=== PATIENT | male | born 1980 | race Caucasian/White ===

== ENCOUNTER 2017-05-23 13:10 | Emergency (ER) | payer SELFPAY ==
[~2017-05-23] VITALS: Ht 182.9 cm; Wt 99.8 kg
--- NOTE | 2017-05-23 14:05 | ED Abdominal Pain ---
General Chief Complaint: Abdominal/GI Problems Stated Complaint: ABD PAIN V/D Nursing Triage Note: C/O DIFFUSE ABDOMEN PAIN WITH DIARRHEA SINCE 0400 ON 05/22 Sepsis Screen: No Definite Risk Source of Information: Patient Exam Limitations: No Limitations History of Present Illness Time Seen By Provider: 14:04 Initial Comments To ER with abdominal pain, nausea vomiting and diarrhea. This began yesterday evening. He believed it may have been secondary to [employer] fast food that he got in [place] night before. However, today, the vomiting has improved but the diarrhea persists and is watery and without marco blood or mucus. Has no history of this. He does have some left-sided abdominal discomfort. Timing/Duration: 1-2 Days Severity/Quality: Cramping Location: LLQ Radiation: No Radiation Activities at Onset: None Allergies and Home Medications Allergies Coded Allergies: Penicillins (Verified Allergy, Unknown, 05/23/17) Home Medications No Active Prescriptions or Reported Meds Review of Systems Constitutional: see HPI, No chills EENTM: No Symptoms Reported Respiratory: No Symptoms Reported Cardiovascular: No Symptoms Reported Gastrointestinal: See HPI, Abdominal Pain, Diarrhea, Nausea Genitourinary: No Symptoms Reported Musculoskeletal: no symptoms reported Skin: no symptoms reported Psychiatric/Neurological: No Symptoms Reported Endocrine: No Symptoms Reported Past Rxrgtgh-Fyyfjp-Gxutby Hx Patient Social History Alcohol Use: Occasionally Uses Recreational Drug Use: No Smoking Status: Former Smoker Recent Foreign Travel: No Contact w/Someone Who Travel: No Recent Infectious Disease Expo: No Physical Exam Vital Signs VS - Last 72 Hours, by Label 05/23/17 13:54 Temp 98.4 Pulse 64 Resp 18 B/P (MAP) 115/80 Pulse Ox 98 Capillary Refill : Less Than 3 Seconds General Appearance: WD/WN, no apparent distress HEENT: PERRL/EOMI, normal ENT inspection Neck: non-tender, full range of motion Respiratory: normal breath sounds, no respiratory distress, no accessory muscle use Cardiovascular: regular rate, rhythm, no murmur Gastrointestinal: normal bowel sounds, non tender, soft, No tenderness Extremities: normal range of motion, non-tender Neurologic/Psychiatric: alert, normal mood/affect, oriented x 3 Skin: normal color, warm/dry Progress/Results/Core Measures Results/Orders Lab Results Laboratory Tests Test 05/23/17 14:05 Range/Units White Blood Count 6.9 4.3-11.0 10^3/uL Red Blood Count 5.21 4.35-5.85 10^6/uL Hemoglobin 15.8 13.3-17.7 G/DL Hematocrit 47 40-54 % Mean Corpuscular Volume 90 80-99 FL Mean Corpuscular Hemoglobin 30 25-34 PG Mean Corpuscular Hemoglobin Concent 34 32-36 G/DL Red Cell Distribution Width 12.8 10.0-14.5 % Platelet Count 247 130-400 10^3/uL Mean Platelet Volume 10.3 7.4-10.4 FL Neutrophils (%) (Auto) 59 42-75 % Lymphocytes (%) (Auto) 27 12-44 % Monocytes (%) (Auto) 11 0-12 % Eosinophils (%) (Auto) 3 0-10 % Basophils (%) (Auto) 1 0-10 % Neutrophils # (Auto) 4.1 1.8-7.8 X 10^3 Lymphocytes # (Auto) 1.9 1.0-4.0 X 10^3 Monocytes # (Auto) 0.7 0.0-1.0 X 10^3 Eosinophils # (Auto) 0.2 0.0-0.3 10^3/uL Basophils # (Auto) 0.1 0.0-0.1 10^3/uL My Orders Orders - MARQUES JONES APRN Cbc With Automated Diff (05/23/17 14:01) Comprehensive Metabolic Panel (05/23/17 14:01) Lipase (05/23/17 14:01) Ua Culture If Indicated (05/23/17 14:01) Ct Abdomen/Pelvis W (05/23/17 14:01) Ns Iv 1000 Ml (Sodium Chloride 0.9%) (05/23/17 14:15) Ketorolac Injection (Toradol Injection) (05/23/17 14:15) Ondansetron Injection (Zofran Injectio (05/23/17 14:15) Iohexol Injection (Omnipaque 350 Mg/Ml 1 (05/23/17 14:15) Sodium Chloride Flush (Catheter Flush Sy (05/23/17 14:15) Ns (Ivpb) (Sodium Chloride 0.9% Ivpb Bag (05/23/17 14:15) Loperamide Capsule (Imodium Capsule) (05/23/17 14:45) Medications Given in ED Current Medications Medications Dose Ordered Sig/Arnol Route Start Time Stop Time Status Last Admin Dose Admin Iohexol 100 ml ONCE ONCE IV 05/23/17 14:15 05/23/17 14:16 DC 05/23/17 14:20 100 ML Ketorolac Tromethamine 30 mg ONCE ONCE IVP 05/23/17 14:15 05/23/17 14:16 DC 05/23/17 14:09 30 MG Ondansetron HCl 4 mg ONCE ONCE IVP 05/23/17 14:15 05/23/17 14:16 DC 05/23/17 14:09 4 MG Sodium Chloride 100 ml ONCE ONCE IV 05/23/17 14:15 05/23/17 14:16 DC 05/23/17 14:20 80 ML Vital Signs/I&O Vital Sign - Last 12Hours 05/23/17 13:54 Temp 98.4 Pulse 64 Resp 18 B/P (MAP) 115/80 Pulse Ox 98 Blood Pressure Mean: 92 Diagnostic Imaging Diagonstic Imaging: CT Comments NAME: TAYLER EDG[facility] REC#: [id number] PT STATUS: REG ER : 1980 PHYSICIAN: MARQUES JONES EQUIPMENT SCHEDULER ADMIT DATE: 05/23/17/ER Draft Date of Exam:05/23/17 CT ABDOMEN/PELVIS W PROCEDURE: CT abdomen and pelvis with contrast. TECHNIQUE: Multiple contiguous axial images were obtained through the abdomen and pelvis after administration of intravenous contrast. INDICATION: Abdominal pain, nausea, vomiting, and diarrhea. FINDINGS: The appendix is visualized and normal. There is no diverticulitis. There is no ascites, abscess, hematoma, or other fluid collection. The liver, bile ducts, gallbladder, spleen, adrenals, and pancreas are unremarkable. The unobstructed kidneys appear normal. There is no focal inflammatory process. No pneumatosis or free air. No aneurysm, adenopathy, or mass. The lung bases and the osseous structures are nonacute. IMPRESSION: No acute appearing abnormality. Dictated on workstation # [id number] Dict: 05/23/17 1430 Trans: 05/23/17 1436 [id number] Interpreted by: CARMELO ROSEN Electronically signed by: Departure Impression Impression: Primary Impression: Nausea, vomiting, and diarrhea Disposition: 01 HOME, SELF-CARE Condition: Stable Departure-Patient Inst. Decision time for Depature: 14:39 Referrals: NO,LOCAL PHYSICIAN (PCP/Family) Primary Care Physician Patient Instructions: Diarrhea in Adolescents and Adults Add. Discharge Instructions: 1. Use [id number]-cmryllz Imodium which can be purchased at [employer] or [employer] for diarrhea 2. Stay hydrated by drinking plenty of fluids. Pedialyte is a great choice, Gatorade or water would also be okay. 3. Follow-up with one of the physicians listed. If your symptoms persist beyond the end of this week would be time to obtain stool cultures to determine if there are any unusual bacteria causing your symptoms All discharge instructions reviewed with patient and/or family. Voiced understanding. Scripts No Active Prescriptions or Reported Meds Work/School Note: Work Release Form Date Seen in the Emergency Department: May 23, 2017 Return to Work: May 24, 2017 MARQUES JONES APRN May 23, 2017 14:05
[2017-05-23] MEDS ORDERED: KETOROLAC 30 MG/ML VIAL IVP ONE (14:15)
[2017-05-23] MEDS ORDERED: IOHEXOL 350 MG/ML 100 ML (OMNIPAQUE 350) VIAL IV ONE (14:15)
[2017-05-23] MEDS ORDERED: NS 100 ML (IVPB) BAG IV ONE (14:15)
[2017-05-23] MEDS ORDERED: NS IV 1000 ML 1,000 ML IV SCH (14:15)
[2017-05-23] MEDS ORDERED: ONDANSETRON 4 MG/2 ML (SDV) Z0FRAN IVP ONE (14:15)
[2017-05-23] MEDS ORDERED: CATHETER FLUSH 10 ML SYR IV PRN (14:15)
[2017-05-23 14:17] LABS: BASOPHILS # (AUTO) 0.1 10^3/uL (0.0-0.1); BASOPHILS % (AUTO) 1 % (0-10); EOSINOPHILS # (AUTO) 0.2 10^3/uL (0.0-0.3); EOSINOPHILS % (AUTO) 3 % (0-10); LYMPHOCYTES # (AUTO) 1.9 X 10^3 (1.0-4.0); LYMPHOCYTES % (AUTO) 27 % (12-44); MEAN CORPUSCULAR HEMOGLOBIN 30 PG (25-34); MEAN CORPUSCULAR HGB CONC 34 G/DL (32-36); MEAN CORPUSCULAR VOLUME 90 FL (80-99); MEAN PLATELET VOLUME 10.3 FL (7.4-10.4); MONOCYTES # (AUTO) 0.7 X 10^3 (0.0-1.0); MONOCYTES % (AUTO) 11 % (0-12); NEUTROPHILS # (AUTO) 4.1 X 10^3 (1.8-7.8); NEUTROPHILS % (AUTO) 59 % (42-75); PLATELET COUNT 247 10^3/uL (130-400); RED BLOOD COUNT 5.21 10^6/uL (4.35-5.85); RED CELL DISTRIBUTION WIDTH 12.8 % (10.0-14.5); WHITE BLOOD COUNT 6.9 10^3/uL (4.3-11.0)
--- NOTE | 2017-05-23 14:36 | Diagnostic Imaging Report ---
PROCEDURE: CT abdomen and pelvis with contrast. TECHNIQUE: Multiple contiguous axial images were obtained through the abdomen and pelvis after administration of intravenous contrast. INDICATION: Abdominal pain, nausea, vomiting, and diarrhea. FINDINGS: The appendix is visualized and normal. There is no diverticulitis. There is no ascites, abscess, hematoma, or other fluid collection. The liver, bile ducts, gallbladder, spleen, adrenals, and pancreas are unremarkable. The unobstructed kidneys appear normal. There is no focal inflammatory process. No pneumatosis or free air. No aneurysm, adenopathy, or mass. The lung bases and the osseous structures are nonacute. IMPRESSION: No acute appearing abnormality. Dictated by: Dictated on workstation # [id number]
[2017-05-23 14:41] LABS: ALANINE AMINOTRANSFERASE 24 U/L (0-55); ANION GAP 7 MMOL/L (5-14); ASPARTATE AMINO TRANSFERASE 16 U/L (5-34); BILIRUBIN,TOTAL 0.8 MG/DL (0.1-1.0); BLOOD UREA NITROGEN 11 MG/DL (7-18); BUN/CREATININE RATIO 12; CALCIUM 9.2 MG/DL (8.5-10.1); CARBON DIOXIDE 28 MMOL/L (21-32); CHLORIDE 106 MMOL/L (98-107); CREATININE SERUM 0.94 MG/DL (0.60-1.30); GFR ESTIMATED > 60; GLUCOSE 87 MG/DL (70-105); LIPASE 29 U/L (8-78); POTASSIUM 3.9 MMOL/L (3.6-5.0); SODIUM 141 MMOL/L (135-145); TOTAL PROTEIN 6.9 GM/DL (6.4-8.2)
[2017-05-23] MEDS ORDERED: LOPERAMIDE 2 MG (IMODIUM) CAP PO ONE (14:45)
[2017-05-23 14:57] VITALS: BP 115/80
== END 2017-05-23 14:57 | disposition home or self-care (01) ==
LOC: ER 13:13
DX: R11.2 Nausea with vomiting, unspecified (principal); R19.7 Diarrhea, unspecified; Z87.891 Personal history of nicotine dependence
CPT/HCPCS: 36415; 74177; 80053; 83690; 85025; 96361; 96374; 96375

== ENCOUNTER 2017-05-29 10:48 | Emergency (ER) | payer SELFPAY ==
[~2017-05-29] VITALS: Ht 182.9 cm; Wt 104.3 kg
[2017-05-29] MEDS ORDERED: NS IV 1000 ML 1,000 ML IV ONE ×2 (11:45→13:26)
--- NOTE | 2017-05-29 11:46 | ED Neurological Problem ---
General Chief Complaint: Dizziness/Syncope Stated Complaint: SOB,DIZZINESS,SWEATING Nursing Triage Note: pt reports dizziness and soa starting this am. pt reports soa is intermittent. pt also reports l ear "fullness". pt denies any current pain at this time. Nursing Sepsis Screen: No Definite Risk Source: patient, spouse Exam Limitations: no limitations History of Present Illness Time seen by provider: 11:20 Initial Comments 37 yo male patient presents to the ED with c/o intermittent dizziness beginning this AM while at work. Reports dizziness is worse with standing. Does complain of mild nausea. Patient states after symptoms began he did start to feel a little short of breath followed by his hands feeling tingly. Does report left ear fullness. States he was outside quite a bit this weekend. Does drink a lot of water. Timing/Duration: 1-3 hours, waxing and waning Severity: moderate Allergies and Home Medications Allergies Coded Allergies: Penicillins (Verified Allergy, Unknown, 05/23/17) Home Medications Ciprofloxacin HCl 500 Mg Tablet, 500 MG PO BID, #20 Ref 0 Prescribed by: VISHAL BLUE on 05/29/17 1357 Meclizine HCl 25 Mg Tablet, 25 MG PO Q6H PRN for DIZZINESS, #20 Ref 0 Prescribed by: VISHAL BLUE on 05/29/17 1357 Constitutional: No chills, No diaphoresis, dizziness, No fever, No malaise Eyes: Denies Blurred Vision, Denies Decreased Acuity, Denies Vision Changes Ears, Nose, Mouth, Throat: see HPI, denies ear pain, denies ear discharge, denies nose pain, denies nose discharge, denies mouth pain, denies loose teeth, denies throat pain Respiratory: see HPI, No cough, No dyspnea on exertion, No orthopnea, No phlegm , No short of breath (did have 1 episode of SOA, but resolved.), No wheezing Cardiovascular: No chest pain, No edema, No palpitations, No syncope Gastrointestinal: No abdominal pain, No constipation, No diarrhea, nausea, No vomiting Genitourinary: no symptoms reported Musculoskeletal: no symptoms reported Skin: no symptoms reported Psychiatric/Neurological: Denies Cognitive Dysfunction, Denies Headache, Denies Numbness, Tingling ((resolved)), Denies Unable to Move Lower Ext, Denies Unable to Move Upper Ext All Other Systems Reviewed Negative Unless Noted: Yes (Negative excepted noted.) Past Ezjtvdr-Ujhngc-Pjxtpu Hx Patient Social History Alcohol Use: Occasionally Uses Recreational Drug Use: No Smoking Status: Former Smoker Recent Foreign Travel: No Contact w/Someone Who Travel: No Recent Infectious Disease Expo: No Surgeries HX Surgeries: No Respiratory Hx Respiratory Disorders: No Cardiovascular Hx Cardiac Disorders: No Neurological Hx Neurological Disorders: No Gastrointestinal Hx Gastrointestinal Disorders: No Musculoskeletal Hx Musculoskeletal Disorders: No Endocrine Hx Endocrine Disorders: No HEENT HX ENT Disorders: No Blood Transfusions Adverse Reaction to a Blood Tr: No Reviewed Nursing Assessment Reviewed/Agree w Nursing PMH: Yes Family Medical History Significant Family History: No Pertinent Family Hx Physical Exam Vital Signs Vital Sign - Last 12Hours 05/29/17 10:52 Temp 98.1 Pulse 58 Resp 16 B/P (MAP) 130/78 Pulse Ox 99 Capillary Refill : Less Than 3 Seconds General Appearance: WD/WN, no apparent distress HEENT: PERRL/EOMI, normal ENT inspection, TMs normal, pharynx normal Neck: supple, normal inspection Respiratory: lungs clear, normal breath sounds, no respiratory distress Cardiovascular: normal peripheral pulses, no edema, no murmur, bradycardia Peripheral Pulses: 2+ Dorsalis Pedis (R), 2+ Left Dors-Pedis (L), 2+ Radial Pulses (R), 2+ Radial Pulses (L) Gastrointestinal: normal bowel sounds, non tender, soft, no organomegaly Back: normal inspection Extremities: no pedal edema, normal capillary refill Neurologic/Psychiatric: cork slabs sawyer II-XII nml as tested, no motor/sensory deficits, alert, normal mood/affect, oriented x 3 Crainal Nerves: normal hearing, normal speech, PERRL, No facial asymmetry, No facial droop, No facial paresthesias, No facial weakness, No gaze palsy Coordination/Gait: normal finger to nose, normal gait, negative Romberg's sign Motor/Sensory: no motor deficit, no sensory deficit, no pronator drift Skin: normal color, warm/dry Progress/Results/Core Measures Results/Orders Lab Results Laboratory Tests Test 05/29/17 11:55 05/29/17 13:24 Range/Units White Blood Count 6.2 4.3-11.0 10^3/uL Red Blood Count 5.20 4.35-5.85 10^6/uL Hemoglobin 15.8 13.3-17.7 G/DL Hematocrit 46 40-54 % Mean Corpuscular Volume 89 80-99 FL Mean Corpuscular Hemoglobin 30 25-34 PG Mean Corpuscular Hemoglobin Concent 34 32-36 G/DL Red Cell Distribution Width 12.7 10.0-14.5 % Platelet Count 235 130-400 10^3/uL Mean Platelet Volume 10.0 7.4-10.4 FL Neutrophils (%) (Auto) 65 42-75 % Lymphocytes (%) (Auto) 24 12-44 % Monocytes (%) (Auto) 9 0-12 % Eosinophils (%) (Auto) 2 0-10 % Basophils (%) (Auto) 1 0-10 % Neutrophils # (Auto) 4.0 1.8-7.8 X 10^3 Lymphocytes # (Auto) 1.5 1.0-4.0 X 10^3 Monocytes # (Auto) 0.6 0.0-1.0 X 10^3 Eosinophils # (Auto) 0.1 0.0-0.3 10^3/uL Basophils # (Auto) 0.0 0.0-0.1 10^3/uL Sodium Level 138 135-145 MMOL/L Potassium Level 4.4 3.6-5.0 MMOL/L Chloride Level 104 98-107 MMOL/L Carbon Dioxide Level 27 21-32 MMOL/L Anion Gap 7 5-14 MMOL/L Blood Urea Nitrogen 13 7-18 MG/DL Creatinine 0.84 0.60-1.30 MG/DL Estimat Glomerular Filtration Rate > 60 BUN/Creatinine Ratio 15 Glucose Level 102 70-105 MG/DL Calcium Level 8.9 8.5-10.1 MG/DL Total Bilirubin 1.1 H 0.1-1.0 MG/DL Aspartate Amino Transf (AST/SGOT) 17 5-34 U/L Alanine Aminotransferase (ALT/SGPT) 28 0-55 U/L Alkaline Phosphatase 60 40-136 U/L Troponin I < 0.30 <0.30 NG/ML Total Protein 7.0 6.4-8.2 GM/DL Albumin 4.2 3.2-4.5 GM/DL TSH Richardson Testing 0.79 0.35-4.94 UIU/ML Serum Alcohol < 10 <10 MG/DL Urine Color YELLOW Urine Clarity CLEAR Urine pH 8 5-9 Urine Specific [place] 1.010 L 1.016-1.022 Urine Protein NEGATIVE NEGATIVE Urine Glucose (UA) NEGATIVE NEGATIVE Urine Ketones NEGATIVE NEGATIVE Urine Nitrite NEGATIVE NEGATIVE Urine Bilirubin NEGATIVE NEGATIVE Urine Urobilinogen NORMAL NORMAL MG/DL Urine Leukocyte Esterase 2+ H NEGATIVE Urine RBC (Auto) NEGATIVE NEGATIVE Urine RBC NONE /HPF Urine WBC 10-25 H /HPF Urine Squamous Epithelial Cells 5-10 /HPF Urine Crystals NONE /LPF Urine Amorphous Sediment RARE KURT PHOSPHATE H /LPF Urine Bacteria FEW H /HPF Urine Casts NONE /LPF Urine Mucus NEGATIVE /LPF Urine Culture Indicated YES Urine Opiates Screen NEGATIVE NEGATIVE Urine Oxycodone Screen NEGATIVE NEGATIVE Urine Methadone Screen NEGATIVE NEGATIVE Urine Propoxyphene Screen NEGATIVE NEGATIVE Urine Barbiturates Screen NEGATIVE NEGATIVE Ur Tricyclic Antidepressants Screen NEGATIVE NEGATIVE Urine Phencyclidine Screen NEGATIVE NEGATIVE Urine Amphetamines Screen NEGATIVE NEGATIVE Urine Methamphetamines Screen NEGATIVE NEGATIVE Urine Benzodiazepines Screen NEGATIVE NEGATIVE Urine Cocaine Screen NEGATIVE NEGATIVE Urine Cannabinoids Screen NEGATIVE NEGATIVE My Orders Orders - VISHAL BLUE PA Alcohol (05/29/17 11:12) Cbc With Automated Diff (05/29/17 11:12) Comprehensive Metabolic Panel (05/29/17 11:12) Drug Screen Stat (Urine) (05/29/17 11:12) Thyroid Analyzer (05/29/17 11:12) Troponin I (05/29/17 11:12) Ua Culture If Indicated (05/29/17 11:12) Saline Lock/Iv-Start (05/29/17 11:12) Ekg Tracing (05/29/17 11:12) Chest Pa/Lat (2 View) (05/29/17 11:34) Ns Iv 1000 Ml (Sodium Chloride 0.9%) (05/29/17 11:45) Ns Iv 1000 Ml (Sodium Chloride 0.9%) (05/29/17 13:26) Meclizine Tablet (Antivert Tablet) (05/29/17 13:30) Urine Culture (05/29/17 13:24) Neis Shyam Dna Urine Test (05/29/17 13:53) Chlamydia Dna Urine Test (05/29/17 13:53) Medications Given in ED Current Medications Medications Dose Ordered Sig/Arnol Route Start Time Stop Time Status Last Admin Dose Admin Meclizine HCl 25 mg ONCE ONCE PO 05/29/17 13:30 05/29/17 13:31 DC 05/29/17 13:38 25 MG Sodium Chloride 1,000 ml @ 0 mls/hr Q0M ONCE IV 05/29/17 11:45 05/29/17 11:46 DC 05/29/17 12:01 0 MLS/HR Sodium Chloride 1,000 ml @ 0 mls/hr Q0M ONCE IV 05/29/17 13:26 05/29/17 13:27 DC 05/29/17 13:38 0 MLS/HR Vital Signs/I&O Vital Sign - Last 12Hours 05/29/17 05/29/17 10:52 14:24 Temp 98.1 98.1 Pulse 58 60 Resp 16 16 B/P (MAP) 130/78 Pulse Ox 99 99 Blood Pressure Mean: 95 ECG Initial ECG Impression Date: May 29, 2017 Initial ECG Impression Time: 11:49 Initial ECG Rate: 52 Initial ECG Rhythm: S.Tito Initial ECG Intervals: Normal Initial ECG Impression: Normal Initial ECG Comparisson: No Previous ECG Available Comment sinus bradycardia. no stemi or arrhythmia noted. ECG reviewed and discussed with Dr. Johns. Diagnostic Imaging Diagonstic Imaging: Xray Plain Films/CT/US/NM/MRI: chest Comments FINDINGS: The lungs are clear. The heart size is normal. No effusion or pneumothorax. Mediastinum and christian appear unremarkable. IMPRESSION: Unremarkable exam. Dictated on workstation # [id number] Reviewed: Reviewed by Me (radiology report reviewed by me.) Departure Communication Progress Notes Diagnostic and laboratory findings were discussed with the patient. Patient was given 2 L of normal saline and Antivert with improvement in symptoms. Plan for discharge to home. Patient ambulated from the emergency department without difficulty. Patient case discussed with Lars Johns, he agrees with the plan of care. Impression Impression: Primary Impression: Dizziness Additional Impression: Urinary tract infection Qualified Codes: N30.00 - Acute cystitis without hematuria Disposition: HOME, SELF-CARE Condition: Improved Departure-Patient Inst. Decision time for Depature: 13:55 Referrals: NO,LOCAL PHYSICIAN (PCP/Family) Primary Care Physician Patient Instructions: Heat Exhaustion and Heat Stroke (DC), Urinary Tract Infection, Adult (DC) Add. Discharge Instructions: All discharge instructions reviewed with patient and/or family. Voiced understanding. Medications as instructed. Tylenol and ibuprofen over-the- counter as directed for pain if needed. Drink plenty of fluids. Alternate water and Gatorade/Powerade. Avoid the heat for 2-3 days. Follow-up with your family practitioner for recheck. Call for appointment time. Return to the emergency department for worsened dizziness, changes in vision, changes in behavior, slurred speech, headache, numbness, weakness, now incontinence, bladder incontinence, seizure, chest pain, shortness of air, vomiting, or any other concerns. Scripts Meclizine HCl (Meclizine HCl) 25 Mg Tablet 25 MG PO Q6H Y for DIZZINESS, #20 TAB 0 Refills Prov: VISHAL BLUE 05/29/17 Ciprofloxacin HCl (Ciprofloxacin HCl) 500 Mg Tablet 500 MG PO BID, #20 TAB 0 Refills Prov: VISHAL BLUE 05/29/17 Work/School Note: Work Release Form Date Seen in the Emergency Department: May 29, 2017 Return to Work: May 31, 2017 VISHAL BLUE May 29, 2017 11:46
--- NOTE | 2017-05-29 11:48 | Diagnostic Imaging Report ---
EXAMINATION: PA and lateral views of the chest. INDICATION: Dizziness. Syncope, shortness of breath. FINDINGS: The lungs are clear. The heart size is normal. No effusion or pneumothorax. Mediastinum and christian appear unremarkable. IMPRESSION: Unremarkable exam. Dictated by: Dictated on workstation # [id number]
[2017-05-29 12:02] LABS: BASOPHILS % (AUTO) 1 % (0-10); EOSINOPHILS # (AUTO) 0.1 10^3/uL (0.0-0.3); EOSINOPHILS % (AUTO) 2 % (0-10); LYMPHOCYTES # (AUTO) 1.5 X 10^3 (1.0-4.0); LYMPHOCYTES % (AUTO) 24 % (12-44); MEAN CORPUSCULAR HEMOGLOBIN 30 PG (25-34); MEAN CORPUSCULAR HGB CONC 34 G/DL (32-36); MEAN CORPUSCULAR VOLUME 89 FL (80-99); MONOCYTES # (AUTO) 0.6 X 10^3 (0.0-1.0); MONOCYTES % (AUTO) 9 % (0-12); NEUTROPHILS % (AUTO) 65 % (42-75); PLATELET COUNT 235 10^3/uL (130-400); RED CELL DISTRIBUTION WIDTH 12.7 % (10.0-14.5); WHITE BLOOD COUNT 6.2 10^3/uL (4.3-11.0)
[2017-05-29 12:25] LABS: ALANINE AMINOTRANSFERASE 28 U/L (0-55); ALBUMIN 4.2 GM/DL (3.2-4.5); ALCOHOL < 10 MG/DL (<10); ANION GAP 7 MMOL/L (5-14); ASPARTATE AMINO TRANSFERASE 17 U/L (5-34); BILIRUBIN,TOTAL 1.1 MG/DL (0.1-1.0); BLOOD UREA NITROGEN 13 MG/DL (7-18); BUN/CREATININE RATIO 15; CALCIUM 8.9 MG/DL (8.5-10.1); CARBON DIOXIDE 27 MMOL/L (21-32); CHLORIDE 104 MMOL/L (98-107); CREATININE SERUM 0.84 MG/DL (0.60-1.30); GFR ESTIMATED > 60; GLUCOSE 102 MG/DL (70-105); POTASSIUM 4.4 MMOL/L (3.6-5.0); SODIUM 138 MMOL/L (135-145)
[2017-05-29 12:45] LABS: TROPONIN I < 0.30 NG/ML (<0.30)
[2017-05-29 13:30] LABS: BILIRUBIN,URINE NEGATIVE (NEGATIVE); KETONES,URINE NEGATIVE (NEGATIVE); LEUKOCYTE ESTERASE ,URINE 2+ (NEGATIVE); NITRITE,URINE NEGATIVE (NEGATIVE); PH,URINE 8 (5-9); PROTEIN,URINE NEGATIVE (NEGATIVE); UROBILINOGEN,URINE NORMAL (NORMAL)
[2017-05-29] MEDS ORDERED: MECLIZINE 25 MG (ANTIVERT) TAB PO ONE (13:30)
[2017-05-29] MEDS ORDERED: MECL-106 PO (13:57)
[2017-05-29] MEDS ORDERED: CIPR500T4 PO (13:57)
[2017-05-29 14:24] VITALS: BP 124/68
[2017-05-30 13:25] LABS: CHLAMYDIA DNA URINE Not Detected (Not Detected)
[2017-05-30 13:26] LABS: NEISSERIA GONORRHEA DNA URINE Not Detected (Not Detected)
== END 2017-05-29 14:24 | disposition home or self-care (01) ==
LOC: EDUNIT# 10:48 → ER 11:31
DX: R42 Dizziness and giddiness (principal); N39.0 Urinary tract infection, site not specified; Z87.891 Personal history of nicotine dependence
CPT/HCPCS: 36415; 71020; 80053; 80306; 80320; 81000; 84443; 84484; 85025; 87088; 87491; 87591; 93005; 96360; 96361

== ENCOUNTER 2017-12-21 11:46 | Emergency (ER) | payer SELFPAY ==
[~2017-12-21] VITALS: Ht 182.9 cm; Wt 104.3 kg
[~2017-12-21 11:46] MED LIST: CIPR500T4 PO; MECL-106 PO
--- NOTE | 2017-12-21 13:06 | ED Integumentary General ---
General Chief Complaint: Skin/Wound Problems Stated Complaint: POSS ABSCESS ON BACK Source: patient Exam Limitations: no limitations History of Present Illness Date Seen by Provider: Dec 21, 2017 Time Seen by Provider: 13:04 Initial Comments To ER with concerns of an abscess to the right side of his back. This is been present since about age 20 but only over the past 2-3 days has become red and painful and much larger. Timing/Duration: just prior to arrival Severity: moderate Allergies and Home Medications Allergies Coded Allergies: Penicillins (Verified Allergy, Unknown, 05/23/17) Home Medications Ciprofloxacin HCl 500 Mg Tablet, 500 MG PO BID, #20 Ref 0 Prescribed by: VISHAL BLUE on 05/29/17 1357 Meclizine HCl 25 Mg Tablet, 25 MG PO Q6H PRN for DIZZINESS, #20 Ref 0 Prescribed by: VISHAL BLUE on 05/29/17 1357 Constitutional: see HPI, No chills, No fever EENTM: see HPI Respiratory: no symptoms reported Cardiovascular: no symptoms reported Genitourinary: no symptoms reported Musculoskeletal: no symptoms reported Skin: no symptoms reported Psychiatric/Neurological: No Symptoms Reported Past Sitcqix-Hfsfif-Jckpnf Hx Patient Social History Former Smoker, Quit: May 18, 2016 Surgeries History of Surgeries: Yes (DENTAL) Respiratory History of Respiratory Disorde: No Cardiovascular History of Cardiac Disorders: No Neurological History of Neurological Disord: No Genitourinary History of Genitourinary Disor: No Gastrointestinal History of Gastrointestinal Di: No Musculoskeletal History of Musculoskeletal Dis: No Endocrine History of Endocrine Disorders: No HEENT History of HEENT Disorders: No Cancer History of Cancer: No Psychosocial History of Psychiatric Problem: No Integumentary History of Skin or Integumenta: No Blood Transfusions History of Blood Disorders: No Adverse Reaction to a Blood Tr: No Family Medical History Significant Family History: No Pertinent Family Hx Physical Exam Vital Signs Capillary Refill : General Appearance: WD/WN, no apparent distress HEENT: PERRL/EOMI, normal ENT inspection Neck: non-tender, full range of motion Respiratory: no respiratory distress, no accessory muscle use Gastrointestinal: normal bowel sounds, non tender Neurologic/Psychiatric: alert, normal mood/affect, oriented x 3 Skin: normal color, warm/dry Skin Problem Location: torso, other (right lateral thoracic back) I&D : Blade Size: 11 Packing/Drain: 1/4 Nayana Drain Progress Area was cleaned with chlorhexidine scrub. Anesthetized with 5 mL of 2% lidocaine without epinephrine. A stab incision made with 11 blade scalpel. Large amount of occurred like sick cheesy material expressed. Quarter-inch Nayana drain was then placed. Placed with a single simple interrupted suture. Progress/Results/Core Measures Results/Orders My Orders Orders - MARQUES JONES APRN Wound Culture (12/21/17 13:01) Lidocaine 2% Injection 20 Ml (Xylocaine (12/21/17 13:15) Sulfamethoxazole/Trimet Ds Tab (Bactrim (12/21/17 13:15) Departure Impression Impression: Primary Impression: Infected sebaceous cyst Disposition: HOME, SELF-CARE Condition: Stable Departure-Patient Inst. Decision time for Depature: 13:05 Referrals: NO,LOCAL PHYSICIAN (PCP) Primary Care Physician Patient Instructions: SEBACEOUS CYST-I&D Add. Discharge Instructions: 1. Return to ER for any concerns such as increasing pain, fevers. Otherwise, return to the emergency room in 5 days to have the drain removed. 2. Follow-up with your doctor next week 3. Medication as directed All discharge instructions reviewed with patient and/or family. Voiced understanding. Scripts Sulfamethoxazole/Trimethoprim (Bactrim Ds Tablet) 1 Each Tablet 1 EACH PO BID, #10 TAB Prov: MARQUES JONES APRN 12/21/17 Hydrocodone/Acetaminophen (Thurman 5-325 Tablet) 1 Each Tablet 1 EACH PO Q4H Y for PAIN-SEVERE, #10 TAB Prov: MARQUES JONES APRN 12/21/17 Images Torso/Trunk 1 - Swelling, Tenderness MARQUES JONES APRN Dec 21, 2017 13:06
[2017-12-21] MEDS ORDERED: LIDOCAINE 2% 20 ML (XYLOCAINE) VIAL INJ ONE (13:15)
[2017-12-21] MEDS ORDERED: TRIM/SULFAMETH 160/800 (SEPTRA DS) TAB PO ONE (13:15)
[2017-12-21 13:20] VITALS: BP 132/70
[2017-12-21] MEDS ORDERED: HYDR-757 PO (13:27)
[2017-12-21] MEDS ORDERED: SULF1TAB35 PO (13:27)
== END 2017-12-21 13:30 | disposition home or self-care (01) ==
LOC: EDUNIT# 11:46 → ER 11:49
DX: L72.3 Sebaceous cyst (principal); Z88.0 Allergy status to penicillin
CPT/HCPCS: 87070; 87205

== ENCOUNTER 2017-12-26 14:23 | Emergency (ER) | payer SELFPAY ==
[~2017-12-26] VITALS: Ht 182.9 cm; Wt 86.2 kg
[~2017-12-26 14:23] MED LIST changes: +HYDR-757 PO; +SULF1TAB35 PO
[2017-12-26 14:40] VITALS: BP 136/78
--- NOTE | 2017-12-26 14:40 | ED Suture Removal/Wound Check ---
Suture/Wound Re-check General Appearance: WD/WN, no apparent distress Skin Exam: warm/dry Comments Sebaceous cyst wounds to the right side of the back just distal and posterior to the axilla still draining some purulent drainage but only minimal surrounding erythema. Wound cleaned and covered with dressing. Physical Exam Vital Signs Capillary Refill : General Appearance: WD/WN, no apparent distress Neurologic/Psychiatric: alert, oriented x 3 Departure Impression Impression: Primary Impression: Encounter for wound re-check Disposition: HOME, SELF-CARE Condition: Improved Departure-Patient Inst. Decision time for Depature: 14:38 Referrals: AYAKA WARD BRETT D DO NO,LOCAL PHYSICIAN (PCP) Primary Care Physician Patient Instructions: Wound Care (DC), Wound Incision and Drainage (DC) Add. Discharge Instructions: All discharge instructions reviewed with patient and/or family. Voiced understanding. You may shower and you may spray wound with shower to help keep it clean. You may use antibiotic ointment and dressing twice daily. Follow-up with surgeon listed her surgeon of your choice within the next several weeks for recheck and for suspicious cyst gland removal. Return for increasing redness, fever, vomiting, increasing pain or other concerns as needed. ALBER SIGALA MD Dec 26, 2017 14:40
== END 2017-12-26 14:43 | disposition home or self-care (01) ==
LOC: EDUNIT# 14:23 → ER 14:25
DX: T81.89XA Other complications of procedures, not elsewhere classified, initial encounter (principal)

== ENCOUNTER 2018-04-04 21:51 | Emergency (ER) | payer SELFPAY ==
[~2018-04-04] VITALS: Ht 182.9 cm; Wt 104.3 kg
[2018-04-04] MEDS ORDERED: LACTATED RINGERS 1,000 ML IV ONE ×2 (22:53→23:54)
[2018-04-04] MEDS ORDERED: ONDANSETRON 4 MG/2 ML (SDV) Z0FRAN IVP ONE (23:00)
[2018-04-04 23:16] LABS: BASOPHILS % (AUTO) 0 % (0-10); EOSINOPHILS % (AUTO) 0 % (0-10); HEMATOCRIT 45 % (40-54); HEMOGLOBIN 15.8 G/DL (13.3-17.7); LYMPHOCYTES # (AUTO) 0.6 X 10^3 (1.0-4.0); LYMPHOCYTES % (AUTO) 9 % (12-44); MEAN CORPUSCULAR HEMOGLOBIN 31 PG (25-34); MEAN CORPUSCULAR HGB CONC 35 G/DL (32-36); MEAN CORPUSCULAR VOLUME 87 FL (80-99); MEAN PLATELET VOLUME 9.8 FL (7.4-10.4); MONOCYTES # (AUTO) 0.6 X 10^3 (0.0-1.0); MONOCYTES % (AUTO) 8 % (0-12); NEUTROPHILS # (AUTO) 5.6 X 10^3 (1.8-7.8); NEUTROPHILS % (AUTO) 83 % (42-75); PLATELET COUNT 246 10^3/uL (130-400); RED BLOOD COUNT 5.16 10^6/uL (4.35-5.85); RED CELL DISTRIBUTION WIDTH 13.2 % (10.0-14.5); WHITE BLOOD COUNT 6.8 10^3/uL (4.3-11.0)
[2018-04-04 23:34] LABS: ALANINE AMINOTRANSFERASE 31 U/L (0-55); ALBUMIN 4.1 GM/DL (3.2-4.5); ALKALINE PHOSPHATASE 56 U/L (40-136); BILIRUBIN,TOTAL 0.8 MG/DL (0.1-1.0); BUN/CREATININE RATIO 11; CALCIUM 8.6 MG/DL (8.5-10.1); CARBON DIOXIDE 20 MMOL/L (21-32); CHLORIDE 107 MMOL/L (98-107); GFR ESTIMATED > 60; GLUCOSE 90 MG/DL (70-105); POTASSIUM 3.6 MMOL/L (3.6-5.0); SODIUM 138 MMOL/L (135-145); TOTAL PROTEIN 6.9 GM/DL (6.4-8.2)
[2018-04-05] MEDS ORDERED: ONDANSETRON 4 MG/2 ML (SDV) Z0FRAN IVP ONE
[2018-04-05] MEDS ORDERED: RX-ONDANSETRON 4 MG ODT (ZOFRAN) PPK #4 PO STA (00:14)
[2018-04-05] MEDS ORDERED: ONDA4TAB8 PO (00:16)
--- NOTE | 2018-04-05 00:16 | ED GI ---
General Chief Complaint: Fever-Adult/Adol Stated Complaint: FEVER 105 Nursing Triage Note: fever, n/v/d today. Sepsis Screen: No Definite Risk Source of Information: Patient History of Present Illness Date Seen by Provider: April 04, 2018 Time Seen by Provider: 22:35 Initial Comments PT ARRIVES VIA POV FROM HOME PT STATES HE BEGAN GETTING SICK EARLIER TODAY STATES HE HAD FEVER OF "105"--TOOK 1 DOSE OF IBUPROFEN EARLIER AND FEVER WENT AWAY, THEN COULD FEEL IT STARTING TO GO BACK UP, SO TOOK A DIFFERENT UNKNOWN OTC MEDICATION FOR FEVER AN HOUR AGO C/O NAUSEA/VOMITING/DIARRHEA HAS VOMITED X 2--ONLY AFTER HE TRIED TO TAKE PEPTO BISMOL TWICE. HAS HAD DIARRHEA > 5 < 10 TIMES, NO BLACK/BLOODY/TARRY STOOLS C/O BODY ACHES C/O MID ABDOMINAL DISCOMFORT--NOT ACTUALLY PAIN--STATES HIS STOMACH IS JUST RUMBLING/GURGLING HAS BEEN ABLE TO KEEP DOWN WATER AND GATORADE TODAY VOIDING A NORMAL AMOUNT--VOIDED JUST PRIOR TO ARRIVAL NO HISTORY OF GI PROBLEMS NO SUSPICIOUS FOODS SON WAS ADMITTED LAST WEEK WITH THE SAME--WAS DEHYDRATED AND DX WITH INTESTINAL VIRUS. HE IS MUCH BETTER PCP: NONE Allergies and Home Medications Allergies Coded Allergies: Penicillins (Verified Allergy, Unknown, 05/23/17) Home Medications Ondansetron 4 Mg Tab.rapdis, 4 MG PO Q4H Prescribed by: BROOKE RAZA on 04/05/18 0016 Patient Home Medication List Home Medication List Reviewed: Yes Review of Systems Constitutional: see HPI, fever EENTM: No Symptoms Reported Respiratory: No Symptoms Reported Cardiovascular: No Symptoms Reported Gastrointestinal: See HPI, Abdominal Pain (PER HPI), Diarrhea, Nausea, Poor Appetite; Denies Poor Fluid Intake; Vomiting Genitourinary: No Symptoms Reported Musculoskeletal: see HPI (BODY ACHES) Skin: no symptoms reported Psychiatric/Neurological: No Symptoms Reported Endocrine: No Symptoms Reported Hematologic/Lymphatic: No Symptoms Reported Past Udcdyzo-Hvehkw-Lnusus Hx Patient Social History Alcohol Use: Occasionally Uses Recreational Drug Use: No Smoking Status: Former Smoker Former Smoker, Quit: May 18, 2016 Recent Foreign Travel: No Contact w/Someone Who Travel: No Recent Infectious Disease Expo: No Recent Hopitalizations: No Immunizations Up To Date Tetanus Booster (TDap): Unknown Seasonal Allergies Seasonal Allergies: No Past Medical History Surgeries: Yes (WISDOM TEETH REMOVED) Respiratory: No Cardiac: No Neurological: No Genitourinary: No Gastrointestinal: No Musculoskeletal: No Endocrine: No HEENT: No Cancer: No Psychosocial: No Integumentary: No Blood Disorders: No Adverse Reaction/Blood Tranf: No Family Medical History No Pertinent Family Hx Physical Exam Vital Signs Vital Signs - First Documented 04/04/18 04/04/18 21:54 22:32 Temp 98.7 Pulse 100 Resp 18 B/P (MAP) 136/80 (98) Pulse Ox 96 O2 Delivery Room Air Capillary Refill : Less Than 3 Seconds General Appearance: WD/WN, no apparent distress, other (SMILING, TEXTING/ PLAYING ON PHONE. DOES NOT APPEAR ILL) HEENT: PERRL/EOMI, other (ORAL MUCOSA MOIST) Neck: normal inspection Respiratory: normal breath sounds, no respiratory distress, no accessory muscle use Cardiovascular: regular rate, rhythm, no murmur Gastrointestinal: normal bowel sounds, non tender, soft, no organomegaly, no pulsatile mass Extremities: normal inspection, no pedal edema, no calf tenderness, normal capillary refill Back: normal inspection, no CVA tenderness Neurologic/Psychiatric: hydrologic engineer II-XII nml as tested, no motor/sensory deficits, alert, normal mood/affect, oriented x 3 Skin: normal color, warm/dry Focused Exam Lactate Level 04/04/18 23:03: Lactic Acid Level 1.45 Lactic Acid Level Laboratory Tests Test 04/04/18 23:03 Lactic Acid Level 1.45 MMOL/L (0.50-2.00) Progress/Results/Core Measures Results/Orders Lab Results Laboratory Tests Test 04/04/18 23:03 Range/Units White Blood Count 6.8 4.3-11.0 10^3/uL Red Blood Count 5.16 4.35-5.85 10^6/uL Hemoglobin 15.8 13.3-17.7 G/DL Hematocrit 45 40-54 % Mean Corpuscular Volume 87 80-99 FL Mean Corpuscular Hemoglobin 31 25-34 PG Mean Corpuscular Hemoglobin Concent 35 32-36 G/DL Red Cell Distribution Width 13.2 10.0-14.5 % Platelet Count 246 130-400 10^3/uL Mean Platelet Volume 9.8 7.4-10.4 FL Neutrophils (%) (Auto) 83 H 42-75 % Lymphocytes (%) (Auto) 9 L 12-44 % Monocytes (%) (Auto) 8 0-12 % Eosinophils (%) (Auto) 0 0-10 % Basophils (%) (Auto) 0 0-10 % Neutrophils # (Auto) 5.6 1.8-7.8 X 10^3 Lymphocytes # (Auto) 0.6 L 1.0-4.0 X 10^3 Monocytes # (Auto) 0.6 0.0-1.0 X 10^3 Eosinophils # (Auto) 0.0 0.0-0.3 10^3/uL Basophils # (Auto) 0.0 0.0-0.1 10^3/uL Sodium Level 138 135-145 MMOL/L Potassium Level 3.6 3.6-5.0 MMOL/L Chloride Level 107 98-107 MMOL/L Carbon Dioxide Level 20 L 21-32 MMOL/L Anion Gap 11 5-14 MMOL/L Blood Urea Nitrogen 10 7-18 MG/DL Creatinine 0.90 0.60-1.30 MG/DL Estimat Glomerular Filtration Rate > 60 BUN/Creatinine Ratio 11 Glucose Level 90 70-105 MG/DL Lactic Acid Level 1.45 0.50-2.00 MMOL/L Calcium Level 8.6 8.5-10.1 MG/DL Total Bilirubin 0.8 0.1-1.0 MG/DL Aspartate Amino Transf (AST/SGOT) 17 5-34 U/L Alanine Aminotransferase (ALT/SGPT) 31 0-55 U/L Alkaline Phosphatase 56 40-136 U/L Total Protein 6.9 6.4-8.2 GM/DL Albumin 4.1 3.2-4.5 GM/DL My Orders Orders - BROOKE RAZA DO Saline Lock/Iv-Start (04/04/18 22:38) Monitor-Rhythm Ecg Trace Only (04/04/18 22:38) Cbc With Automated Diff (04/04/18 22:38) Comprehensive Metabolic Panel (04/04/18 22:38) Lactic Acid Analyzer (04/04/18 22:38) Blood Culture (04/04/18 22:38) Ondansetron Injection (Zofran Injectio (04/04/18 23:00) Lactated Ringers (Lr 1000 Ml Iv Solution (04/04/18 22:53) Saline Lock/Iv-Start (04/04/18 23:54) Lactated Ringers (Lr 1000 Ml Iv Solution (04/04/18 23:54) Ondansetron Injection (Zofran Injectio (04/05/18 00:00) Rx-Ondansetron Po (Rx-Zofran Po) (04/05/18 00:14) Medications Given in ED Current Medications Medications Dose Ordered Sig/Arnol Route Start Time Stop Time Status Last Admin Dose Admin Lactated Ringer's 1,000 ml @ 0 mls/hr Q0M ONCE IV 04/04/18 22:53 04/04/18 22:55 DC 04/04/18 23:14 0 MLS/HR Lactated Ringer's 1,000 ml @ 0 mls/hr Q0M ONCE IV 04/04/18 23:54 04/04/18 23:55 DC 04/05/18 00:00 0 MLS/HR Ondansetron HCl 4 mg ONCE ONCE IVP 04/04/18 23:00 04/04/18 23:01 DC 04/04/18 23:14 4 MG Ondansetron HCl 4 mg ONCE ONCE IVP 04/05/18 00:00 04/05/18 00:01 DC 04/05/18 00:00 4 MG Vital Signs/I&O 04/04/18 04/04/18 04/05/18 21:54 22:32 00:38 Temp 98.7 98.6 98.6 Pulse 100 87 Resp 18 16 B/P (MAP) 136/80 (98) 115/61 (98) Pulse Ox 96 95 O2 Delivery Room Air Room Air 04/05/18 00:00 Intake Total 1000 ml Balance 1000 ml Blood Pressure Mean: 98 Progress Progress Note : Progress Note NO VOMITING OR DIARRHEA DURING ER STAY Departure Impression Primary Impression: Gastroenteritis Disposition: 01 HOME, SELF-CARE Condition: Stable Departure-Patient Inst. Referrals: NO,LOCAL PHYSICIAN (PCP/Family) Primary Care Physician Patient Instructions: [id number] Add. Discharge Instructions: CLEAR LIQUIDS--WATER, BROTH, JELLO, GATORADE, POPSICLES TOMORROW IF YOU ARE BETTER, ADD BRATS DIET TO CLEAR LIQUIDS--BANANAS, RICE, APPLESAUCE, TOAST, SALTINES FOLLOW UP WITH DR OF CHOICE IN 2-3 DAYS IF NO BETTER RETURN TO ER IF WORSE All discharge instructions reviewed with patient and/or family. Voiced understanding. Scripts Ondansetron (Zofran Odt) 4 Mg Tab.rapdis 4 MG PO Q4H for Nausea/Vomiting, #10 TAB Prov: BROOKE RAZA DO 04/05/18 Work/School Note: Work Release Form Date Seen in the Emergency Department: April 04, 2018 Return to Work: Apr 06, 2018 BROOKE RAZA DO April 05, 2018 00:16
[2018-04-05 00:38] VITALS: BP 115/61
== END 2018-04-05 00:38 | disposition home or self-care (01) ==
LOC: EDUNIT# 21:51 → ER 21:53
DX: K52.9 Noninfective gastroenteritis and colitis, unspecified (principal); Z88.0 Allergy status to penicillin; Z87.891 Personal history of nicotine dependence
CPT/HCPCS: 36415; 80053; 83605; 85025; 87040; 93041; 96361; 96374; 96376

== ENCOUNTER 2020-12-21 18:46 | Emergency (ER) | payer SELFPAY ==
[~2020-12-21] VITALS: Ht 182.9 cm; Wt 95.0 kg
[~2020-12-21 18:46] MED LIST changes: -CIPR500T4 PO; +CIPR500T5 PO; +HYDR-4226 PO; -HYDR-757 PO; -MECL-106 PO; +MECL-149 PO; +ONDA4TAB8 PO
[2020-12-21] MEDS ORDERED: LORazepam INJ 2 MG/ML (ATIVAN) VIAL IVP PRN (19:00)
[2020-12-21] MEDS ORDERED: ASPIRIN 81 MG CHEW (CHILDREN'S ASA) PO ONE (19:00)
--- NOTE | 2020-12-21 19:05 | ED Chest Pain ---
General Stated Complaint: CP/BILAT ARM NUMBNESS Source: patient Exam Limitations: no limitations History of Present Illness Date Seen by Provider: Dec 21, 2020 Time Seen by Provider: 19:01 Initial Comments To ER with left-sided chest pain, left arm numbness. The symptoms began this morning upon awakening. No fevers chills or shortness of breath. Has had persistent pain throughout the day today. Has had some diaphoresis. No history there is no history of coronary stenting. He is otherwise healthy. Did not take any aspirin today. He does smoke about 10 cigarettes/day. He drinks whiskey daily. He occasionally uses marijuana and did ingest some methamphetamine by putting it into his drink about 2 days ago. Timing/Duration: constant Severity/Quality: moderate Location: central Radiation: no radiation Activities at Onset: none ASA po REGIONAL TRANSFER LIAISON: No NTG SL REGIONAL TRANSFER LIAISON: No Allergies and Home Medications Allergies Coded Allergies: Penicillins (Verified Allergy, Unknown, 05/23/17) Home Medications Ondansetron 4 Mg Tab.rapdis, 4 MG PO Q4H Prescribed by: BROOKE RAZA on 04/05/18 0016 Patient Home Medication List Home Medication List Reviewed: Yes Review of Systems Review of Systems Constitutional: see HPI EENTM: No Symptoms Reported Respiratory: No Symptoms Reported Cardiovascular: See HPI, Chest Pain Gastrointestinal: No Symptoms Reported Genitourinary: No Symptoms Reported Musculoskeletal: no symptoms reported Skin: no symptoms reported Psychiatric/Neurological: No Symptoms Reported Endocrine: No Symptoms Reported Hematologic/Lymphatic: No Symptoms Reported Past Ytkrblr-Xpbfom-Yjzmxo Hx Patient Social History Former Smoker, Quit: May 18, 2016 Recent Hopitalizations: No Immunizations Up To Date Tetanus Booster (TDap): Unknown Seasonal Allergies Seasonal Allergies: No Past Medical History Surgeries: Yes (WISDOM TEETH REMOVED) Respiratory: No Cardiac: No Neurological: No Genitourinary: No Gastrointestinal: No Musculoskeletal: No Endocrine: No HEENT: No Cancer: No Psychosocial: No Integumentary: No Blood Disorders: No Adverse Reaction/Blood Tranf: No Family Medical History No Pertinent Family Hx Physical Exam Vital Signs Capillary Refill : Height, Weight, BMI Height: 6'0" Weight: 230lbs. oz. 104.450030dq; BMI Method:Stated General Appearance: No Apparent Distress, WD/WN, Anxious, Other (Very anxious appearing, poor eye contact) Neck: Full Range of Motion, Normal Inspection Respiratory: Lungs Clear, Normal Breath Sounds, No Accessory Muscle Use, No Respiratory Distress Cardiovascular: Regular Rate, Rhythm, Normal Peripheral Pulses Gastrointestinal: Non Tender, Soft Extremity: Normal Capillary Refill, Normal Inspection Neurologic/Psychiatric: Alert, Oriented x3 Skin: Normal Color, Warm/Dry Progress/Results/Core Measures Results/Orders Lab Results Laboratory Tests Test 12/21/20 19:00 Range/Units White Blood Count 9.9 4.3-11.0 10^3/uL Red Blood Count 5.72 H 4.30-5.52 10^6/uL Hemoglobin 18.6 H 13.3-17.7 g/dL Hematocrit 54 40-54 % Mean Corpuscular Volume 94 80-99 fL Mean Corpuscular Hemoglobin 33 25-34 pg Mean Corpuscular Hemoglobin Concent 35 32-36 g/dL Red Cell Distribution Width 14.1 10.0-14.5 % Platelet Count 284 130-400 10^3/uL Mean Platelet Volume 9.7 9.0-12.2 fL Immature Granulocyte % (Auto) 0 % Neutrophils (%) (Auto) 64 42-75 % Lymphocytes (%) (Auto) 27 12-44 % Monocytes (%) (Auto) 8 0-12 % Eosinophils (%) (Auto) 0 0-10 % Basophils (%) (Auto) 0 0-10 % Neutrophils # (Auto) 6.4 1.8-7.8 10^3/uL Lymphocytes # (Auto) 2.7 1.0-4.0 10^3/uL Monocytes # (Auto) 0.8 0.0-1.0 10^3/uL Eosinophils # (Auto) 0.0 0.0-0.3 10^3/uL Basophils # (Auto) 0.0 0.0-0.1 10^3/uL Immature Granulocyte # (Auto) 0.0 0.0-0.1 10^3/uL Prothrombin Time 14.3 12.2-14.7 SEC INR Comment 1.1 0.8-1.4 Activated Partial Thromboplast Time 25 24-35 SEC D-Dimer 0.24 0.00-0.49 UG/ML Sodium Level 139 135-145 MMOL/L Potassium Level 4.0 3.6-5.0 MMOL/L Chloride Level 103 98-107 MMOL/L Carbon Dioxide Level 21 21-32 MMOL/L Anion Gap 15 H 5-14 MMOL/L Blood Urea Nitrogen 5 L 7-18 MG/DL Creatinine 1.04 0.60-1.30 MG/DL Estimat Glomerular Filtration Rate > 60 BUN/Creatinine Ratio 5 Glucose Level 95 70-105 MG/DL Calcium Level 10.0 8.5-10.1 MG/DL Corrected Calcium 9.7 8.5-10.1 MG/DL Magnesium Level 2.1 1.6-2.4 MG/DL Total Bilirubin 2.2 H 0.1-1.0 MG/DL Aspartate Amino Transf (AST/SGOT) 30 5-34 U/L Alanine Aminotransferase (ALT/SGPT) 39 0-55 U/L Alkaline Phosphatase 72 40-136 U/L Myoglobin 67.8 10.0-92.0 NG/ML Troponin I < 0.028 <0.028 NG/ML Total Protein 7.6 6.4-8.2 GM/DL Albumin 4.4 3.2-4.5 GM/DL Serum Alcohol < 10 <10 MG/DL My Orders Orders - MARQUES JONES LOLLYPOP MACHINE OPERATOR Cbc With Automated Diff (12/21/20 18:58) Magnesium (12/21/20 18:58) Chest 1 View, Ap/Pa Only (12/21/20 18:58) Ekg Tracing (12/21/20 18:58) Comprehensive Metabolic Panel (12/21/20 18:58) Myoglobin Serum (12/21/20 18:58) Protime With Inr (12/21/20 18:58) Partial Thromboplastin Time (12/21/20 18:58) O2 (12/21/20 18:58) Monitor-Rhythm Ecg Trace Only (12/21/20 18:58) Lipid Panel (12/22/20 06:00) Ed Iv/Invasive Line Start (12/21/20 18:58) Fibrin Degradation Products (12/21/20 18:58) Aspirin Chewable Tablet (Baby Aspirin Ch (12/21/20 19:00) Lorazepam Injection (Ativan Injection) (12/21/20 19:00) Ua Culture If Indicated (12/21/20 19:05) Drug Screen Stat (Urine) (12/21/20 19:05) Alcohol (12/21/20 19:00) Troponin I (12/21/20 19:00) Medications Given in ED Current Medications Medications Dose Ordered Sig/Arnol Route Start Time Stop Time Status Last Admin Dose Admin Aspirin 324 mg ONCE ONCE PO 12/21/20 19:00 12/21/20 19:01 DC 12/21/20 19:05 324 MG Lorazepam 1 mg ONCE PRN IVP 12/21/20 19:00 12/21/20 19:06 1 MG Departure Communication (Admissions) 1954- feeling much better, no tingling in hands, no pain in the arms. Impression Primary Impression: Chest pain Disposition: HOME, SELF-CARE Condition: Stable Departure-Patient Inst. Decision time for Depature: 19:56 Referrals: NO,LOCAL PHYSICIAN (PCP/Family) Primary Care Physician Patient Instructions: Chest Pain (DC) Add. Discharge Instructions: 1. Return to ER for any concerns 2. Follow-up with your doctor next week 3. Scripts Hydroxyzine HCl (Hydroxyzine HCl) 25 Mg Tablet 25 MG PO TID PRN for ANXIETY, #10 TAB Prov: MARQUES JONES APRN 12/21/20 MARQUES JONES APRN Dec 21, 2020 19:05
[2020-12-21 19:07] LABS: BASOPHILS % (AUTO) 0 % (0-10); EOSINOPHILS % (AUTO) 0 % (0-10); HEMATOCRIT 54 % (40-54); HEMOGLOBIN 18.6 g/dL (13.3-17.7); LYMPHOCYTES # (AUTO) 2.7 10^3/uL (1.0-4.0); LYMPHOCYTES % (AUTO) 27 % (12-44); MEAN CORPUSCULAR HEMOGLOBIN 33 pg (25-34); MEAN CORPUSCULAR HGB CONC 35 g/dL (32-36); MEAN CORPUSCULAR VOLUME 94 fL (80-99); MEAN PLATELET VOLUME 9.7 fL (9.0-12.2); MONOCYTES # (AUTO) 0.8 10^3/uL (0.0-1.0); MONOCYTES % (AUTO) 8 % (0-12); NEUTROPHILS # (AUTO) 6.4 10^3/uL (1.8-7.8); NEUTROPHILS % (AUTO) 64 % (42-75); PLATELET COUNT 284 10^3/uL (130-400); WHITE BLOOD COUNT 9.9 10^3/uL (4.3-11.0)
[2020-12-21 19:19] LABS: INR 1.1 (0.8-1.4); PROTHROMBIN TIME PATIENT 14.3 SEC (12.2-14.7)
[2020-12-21 19:28] LABS: ALANINE AMINOTRANSFERASE 39 U/L (0-55); ALBUMIN 4.4 GM/DL (3.2-4.5); ALKALINE PHOSPHATASE 72 U/L (40-136); BILIRUBIN,TOTAL 2.2 MG/DL (0.1-1.0); BUN/CREATININE RATIO 5; CARBON DIOXIDE 21 MMOL/L (21-32); CHLORIDE 103 MMOL/L (98-107); CREATININE SERUM 1.04 MG/DL (0.60-1.30); GFR ESTIMATED > 60; GLUCOSE 95 MG/DL (70-105); MAGNESIUM 2.1 MG/DL (1.6-2.4); SODIUM 139 MMOL/L (135-145); TOTAL PROTEIN 7.6 GM/DL (6.4-8.2)
[2020-12-21] MEDS ORDERED: HYDR-700 PO (19:57)
[2020-12-21 20:00] VITALS: BP 140/108
--- NOTE | 2020-12-21 20:34 | Diagnostic Imaging Report ---
Clinical Indications: Patient with chest pain. Exam: Portable chest x-ray upright view. Comparisons: Chest x-ray dated 05/29/2017. Findings: Lungs/pleura: Lungs are clear. There is no pneumothorax. There is no pleural effusion. Mediastinum: Unremarkable. Pulmonary vasculature: Unremarkable. Heart: Unremarkable. Bones/extrathoracic soft tissue: Unremarkable. Impression: There is no radiographic evidence of acute cardiopulmonary process. Dictated by: Dictated on workstation # [id number]
== END 2020-12-21 20:00 | disposition home or self-care (01) ==
LOC: EDUNIT# 18:46 → ER 18:47
DX: R07.9 Chest pain, unspecified (principal); F41.9 Anxiety disorder, unspecified; Z88.0 Allergy status to penicillin; Z87.891 Personal history of nicotine dependence
CPT/HCPCS: 71045; 80053; 83735; 83874; 84484; 85025; 85379; 85610; 85730; 93005; 93041; 99284; G0480; 36415; 80320